=== PATIENT | female | born 1980 | race Caucasian/White ===

== ENCOUNTER 2019-01-14 16:44 | Inpatient (IN) | payer BC ==
[~2019-01-14] VITALS: Ht 160 cm; Wt 80.5 kg
[2019-01-14] MEDS ORDERED: NORTRIPTYLINE H50 MG PO (16:53)
[2019-01-14] MEDS ORDERED: TRAZODONE HCL150 MG PO (16:53)
[2019-01-14] MEDS ORDERED: ATIVAN0.5 MG PO (16:54)
[2019-01-14] MEDS ORDERED: BUSPAR 15 MG TA15 MG PO (16:54)
--- NOTE | 2019-01-14 17:20 | NUR ---
URINE SPEC OBTAINED, LABELED AT BS AND SENT TO LAB
[2019-01-14 17:23] LABS: BASOPHILS 0.2 % (0-2); EOSINOPHILS 0.1 % (0-7); HEMATOCRIT 50.3 % (36.0-48.0); HEMOGLOBIN 17.4 g/dL (12-16); IMMATURE GRANULOCYTES 0.3 % (0-5); LYMPHOCYTES 11.8 % (15-50); MCH 34.6 pg (26.0-34.0); MCHC 34.6 g/dL (31.0-37.0); MEAN PLATELET VOLUME 10.3 fL (7.4-10.4); MONOCYTES 9.2 % (2-11); NEUTROPHILS 78.4 % (40-80); PLATELET COUNT 279 10x3/uL (130-400); RBC 5.03 10x6/uL (4.00-5.40); RDW 13.8 % (11.5-14.5); WBC 12.6 10x3/uL (4.8-10.8)
[2019-01-14 17:31] VITALS: BP 138/106
[2019-01-14 17:34] LABS: APPEARANCE CLEAR (CLEAR); BILIRUBIN NEGATIVE (NEGATIVE); COLOR YELLOW (YELLOW); EPITHELIAL CELLS 0-5 /hpf (0-5); GLUCOSE 50 mg/dL (NEGATIVE); KETONE NEGATIVE (NEGATIVE); NITRITE NEGATIVE (NEGATIVE); PROTEIN 2+ mg/dL (NEGATIVE); SPECIFIC GRAVITY 1.015 (1.005-1.020); UROBILINOGEN NORMAL (NORMAL)
[2019-01-14 17:35] LABS: AMORPHOUS SEDIMENT >1+ /lpf (NONE SEEN); BACTERIA MANY /hpf (NEGATIVE); MUCUS >1+ /lpf (NONE SEEN)
[2019-01-14 17:41] LABS: ANION GAP 20.6 mmol/L (8-16); CALCIUM 10.2 mg/dL (8.5-10.1); CARBON DIOXIDE 22.5 mmol/L (21.0-32.0); CREATININE - SERUM 1.7 mg/dL (0.6-1.3); POTASSIUM - SERUM 3.1 mmol/L (3.5-5.1)
[2019-01-14 17:46] LABS: ALBUMIN 4.9 g/dL (3.4-5.0); BILIRUBIN - TOTAL 1.44 mg/dL (0.2-1.3); PROTEIN - SERUM 10.5 g/dL (6.4-8.2)
--- NOTE | 2019-01-14 18:20 | NUR ---
NOTIFIED BY LAB OF LACTIC ACID OF 2.8 CRITICAL LAB SHEET COMPLETED AND PLACED ON PT'S CHART.
--- NOTE | 2019-01-14 18:20 | NUR ---
RTND FROM CT. REPORTS NAUSEA RESOLVED.
[2019-01-14 18:30] VITALS: BP 152/92
--- NOTE | 2019-01-14 19:06 | NUR ---
ABXS HELD AND LAB NOTIFIED OF NEED FOR 'S. GAGE JACKSON AWARE
--- NOTE | 2019-01-14 19:06 | NUR ---
BS REPORT TO JUAN CARLOS JACKSON
--- NOTE | 2019-01-14 19:32 | NUR ---
BLOOD CULTURES DRAWN X 2, ROCEPHIN ANTIBIOTIC STARTED NOW.
[2019-01-14 20:03] LABS: UDS - AMPHET NEGATIVE QUAL (NEGATIVE); UDS - BARB NEGATIVE QUAL (NEGATIVE); UDS - BENZO NEGATIVE QUAL (NEGATIVE); UDS - COCAINE NEGATIVE QUAL (NEGATIVE); UDS - OPIATE NEGATIVE QUAL (NEGATIVE); UDS - PCP NEGATIVE QUAL (NEGATIVE); UDS - THC POSITIVE QUAL (NEGATIVE)
[2019-01-14 20:43] VITALS: BP 150/90; BMI 30.5
[2019-01-15] VITALS: BP 149/75
[2019-01-15 03:35] VITALS: BP 139/96
[2019-01-15 06:58] LABS: BASOPHILS 0.1 % (0-2); EOSINOPHILS 0.7 % (0-7); IMMATURE GRANULOCYTES 0.3 % (0-5); LYMPHOCYTES 22.4 % (15-50); MCH 33.4 pg (26.0-34.0); MCHC 33.3 g/dL (31.0-37.0); MCV 100.3 fL (80.0-100.0); MEAN PLATELET VOLUME 10.5 fL (7.4-10.4); MONOCYTES 5.7 % (2-11); NEUTROPHILS 70.8 % (40-80); PLATELET COUNT 245 10x3/uL (130-400); RDW 13.9 % (11.5-14.5)
[2019-01-15 07:00] LABS: HEMATOCRIT 37.8 % (36.0-48.0); HEMOGLOBIN 12.6 g/dL (12-16); RBC 3.77 10x6/uL (4.00-5.40); WBC 7.7 10x3/uL (4.8-10.8)
--- NOTE | 2019-01-15 07:17 | NUR ---
PT RESTING. RR EVEN AND UNLABORED. DENIES NEEDS OR PAIN AT THIS TIME. BED IN LOWEST POSITION. CALL LIGHT WITHIN REACH. WILL CONTINUE TO MONITOR.
[2019-01-15 07:57] LABS: ALKALINE PHOSPHATASE 49 U/L (46-116); AMYLASE - SERUM 214 U/L (25-115); BILIRUBIN - TOTAL 0.92 mg/dL (0.2-1.3); CARBON DIOXIDE 24.6 mmol/L (21.0-32.0); CHLORIDE - SERUM 102 mmol/L (98-107); MAGNESIUM - SERUM 2.9 mg/dL (1.8-2.4); SODIUM 139 mmol/L (136-145)
[2019-01-15 08:02] LABS: ALBUMIN 3.3 g/dL (3.4-5.0); ALT (SGPT) 30 U/L (10-68); CALC OSMOLALITY 278 mosm/kg (275-300); CALCIUM 7.5 mg/dL (8.5-10.1); CREATININE - SERUM 0.8 mg/dL (0.6-1.3); GLUCOSE 95 mg/dL (74-106); LIPASE 2090 U/L (73-393); PROTEIN - SERUM 7.1 g/dL (6.4-8.2); UREA NITROGEN 16 mg/dL (7-18); eGFR NON AFRICAN AMERICAN 86 mL/min (90-120)
[2019-01-15 08:06] LABS: PHOSPHOROUS 1.3 mg/dL (2.5-4.9)
[2019-01-15 08:07] LABS: POTASSIUM - SERUM 2.8 mmol/L (3.5-5.1)
--- NOTE | 2019-01-15 12:51 | NUR ---
PT RESTING. C/O HEARTBURN/INDEGESTION. MARK ARREGUIN NOTIFIED. ORDERS IN FOR [place]. WILL GIVE PER ORDER. PT DENIES FURTHER NEEDS AT THIS TIME. RR EVEN AND UNLABORED. CL WITHIN REACH. WILL CONTINUE TO MONITOR
[2019-01-15 17:25] VITALS: BP 157/103
--- NOTE | 2019-01-15 17:39 | NUR ---
I have reviewed this patient and I concur with the Shift Assessment completed by the Licensed Practical Nurse today this shift.
[2019-01-15 19:06] VITALS: BP 141/99
--- NOTE | 2019-01-15 19:20 | NUR ---
EVENING ROUNDS COMPLETED. VSS, AAOX4, NO S/S OF DISTRESS. BANANA BAG INFUSING. PT DENIES ANY NEED FOR PAIN AT THIS TIME. WILL CTM. CL WITHIN REACH.
[2019-01-15 22:51] LABS: PHOSPHOROUS 1.2 mg/dL (2.5-4.9); POTASSIUM - SERUM 2.8 mmol/L (3.5-5.1)
[2019-01-16 03:51] VITALS: BP 150/104
--- NOTE | 2019-01-16 07:20 | NUR ---
RECIEVE REPORT. ALERT AND ORIENTED X4. SITTING UP IN BED. IV INFUSING ORDERED. SINUS RYTHM ON TELEMETRY. FOLLOW ELECTROLYTE PROTOCOL ORDERED. DENIES ANY NEEDS AT THIS TIME.CONTINUE PLAN OF CARE AND SAFETY PRECAUTIONS.
[2019-01-16 07:38] LABS: CALCIUM 7.5 mg/dL (8.5-10.1); CARBON DIOXIDE 23.5 mmol/L (21.0-32.0); CHLORIDE - SERUM 105 mmol/L (98-107); CREATININE - SERUM 0.6 mg/dL (0.6-1.3); GLUCOSE 105 mg/dL (74-106); MAGNESIUM - SERUM 2.7 mg/dL (1.8-2.4); SODIUM 140 mmol/L (136-145); eGFR NON AFRICAN AMERICAN > 90 mL/min (90-120)
[2019-01-16 07:40] LABS: BASOPHILS 0.5 % (0-2); EOSINOPHILS 1.1 % (0-7); HEMATOCRIT 36.8 % (36.0-48.0); IMMATURE GRANULOCYTES 0.2 % (0-5); LYMPHOCYTES 31.5 % (15-50); MCH 33.1 pg (26.0-34.0); MCHC 32.6 g/dL (31.0-37.0); MCV 101.7 fL (80.0-100.0); MEAN PLATELET VOLUME 9.9 fL (7.4-10.4); MONOCYTES 6.4 % (2-11); NEUTROPHILS 60.3 % (40-80); PLATELET COUNT 252 10x3/uL (130-400); RBC 3.62 10x6/uL (4.00-5.40); RDW 13.9 % (11.5-14.5); WBC 6.4 10x3/uL (4.8-10.8)
[2019-01-16 07:41] LABS: CALC OSMOLALITY 276 mosm/kg (275-300); PHOSPHOROUS 2.2 mg/dL (2.5-4.9); POTASSIUM - SERUM 3.3 mmol/L (3.5-5.1); UREA NITROGEN 6 mg/dL (7-18)
[2019-01-16 08:33] VITALS: BP 137/96
[2019-01-16 11:24] VITALS: BP 149/106
[2019-01-16 12:07] VITALS: Ht 160 cm; Wt 80.5 kg
[2019-01-16 14:16] LABS: PHOSPHOROUS 1.7 mg/dL (2.5-4.9); POTASSIUM - SERUM 3.5 mmol/L (3.5-5.1)
[2019-01-16 16:40] VITALS: BP 148/109
--- NOTE | 2019-01-16 17:48 | NUR ---
ALERT AND ORIENTED X4. SITTING UP IN BED. SINUS TACH 103 ON TELEMETRY. IV FLUIDS INFUSING ORDERED. BANANA BAG HELD DUE TO Mg ELEVATED TO 2.7. DENIES PAIN OR SOB. SHOWER AND LINEN CHANGE COMPLETE. DENIES ANY NEEDS AT THIS TIME. CONTINUE PLAN OF CARE AND SAFETY PRECAUTIONS.
[2019-01-16 19:31] VITALS: BP 151/99
--- NOTE | 2019-01-16 20:15 | NUR ---
EVENING ROUNDS COMPLETED. VSS EXCEPT FOR HR. PT SINUS TACH ON TELEMETRY. BANANA BAG NOT INFUSING AT THIS TIME. OUTGOING HELD DUE TO INCREASE IN BLOOD MAGNESIUM LEVELS. WILL REASSESS AM LABS AND CONTINUE IF NECESSARY. PT DENIES ANY PAIN AT THIS TIME. PT STATES SHE IS HUNGRY AND NEEDED SOME FOOD. EDUCTATE PT ON THE THE NEED TO REMAIN ON BOWEL REST DUE TO ELEVATE LIPASE. ICE CHIPS PROVIDED FOR DRY MOUTH. FAMILY AT BEDSIDE. PT DENIES ANY FURTHER NEEDS AT THIS TIME. WILL CPOC. CL WITHIN REACH, BED IN LOW, SR UP X2.
[2019-01-16 23:58] VITALS: BP 146/105
[2019-01-17 04:13] VITALS: BP 145/102
[2019-01-17 06:25] LABS: BASOPHILS 0.3 % (0-2); EOSINOPHILS 1.3 % (0-7); HEMOGLOBIN 12.9 g/dL (12-16); IMMATURE GRANULOCYTES 0.4 % (0-5); LYMPHOCYTES 23.5 % (15-50); MCH 33.6 pg (26.0-34.0); MCHC 33.1 g/dL (31.0-37.0); MCV 101.6 fL (80.0-100.0); MEAN PLATELET VOLUME 10.1 fL (7.4-10.4); MONOCYTES 7.4 % (2-11); NEUTROPHILS 67.1 % (40-80); PLATELET COUNT 266 10x3/uL (130-400); RBC 3.84 10x6/uL (4.00-5.40); RDW 13.7 % (11.5-14.5); WBC 7.9 10x3/uL (4.8-10.8)
[2019-01-17 06:34] LABS: CALC OSMOLALITY 268 mosm/kg (275-300); CALCIUM 7.8 mg/dL (8.5-10.1); CARBON DIOXIDE 21.7 mmol/L (21.0-32.0); CHLORIDE - SERUM 100 mmol/L (98-107); CREATININE - SERUM 0.5 mg/dL (0.6-1.3); GLUCOSE 89 mg/dL (74-106); MAGNESIUM - SERUM 2.2 mg/dL (1.8-2.4); POTASSIUM - SERUM 3.4 mmol/L (3.5-5.1); SODIUM 136 mmol/L (136-145); UREA NITROGEN 6 mg/dL (7-18); eGFR NON AFRICAN AMERICAN > 90 mL/min (90-120)
--- NOTE | 2019-01-17 09:01 | NUR ---
PT IS UPSET ABOUT HER LABS (SPECIFICALLY HER LIPASE) NOT IMPROVING EVEN THOUGH SHE'S BEEN HERE SINCE SATURDAY. PT IS WANTING TO BE TRANSFERED TO [facility] TO RECIEVE "BETTER CARE". ATTEMTPED TO CALL LESLIE ARREGUIN TO INFORM HER OF THE CONCERNS. CL IN REACH, SRX2.
[2019-01-17 09:13] VITALS: BP 161/114
--- NOTE | 2019-01-17 11:15 | NUR ---
PT HAS MOTHER AT [facility]. EXPLAINED THAT HER LIPASE WAS STILL ELEVATING AND THAT SHE WOULD NEED TO BE STRICTLY NPO. pt verbalizes complience. EXPLAINED THAT A TRANSFER TO [facility] WOULD BE SEEN LATTERAL CARE AND WOULD LIKELY NOT BE A POSSIBLITY BUT WOULD LET FURTHER EXPLAIN WHEN THEY ROUND. L IN REACH, SRX2.
[2019-01-17 11:30] VITALS: BP 152/104
--- NOTE | 2019-01-17 12:08 | NUR ---
I have reviewed this patient and I concur with the Shift Assessment completed by the Licensed Practical Nurse today this shift.
--- NOTE | 2019-01-17 13:05 | NUR ---
PT GONG TO MRI VIA WHEELCHAIR.
--- NOTE | 2019-01-17 13:22 | NUR ---
CHANGED LINNINS AND CLEANED ROOM
--- NOTE | 2019-01-17 14:40 | NUR ---
PT SHOWERED AND LINNENS CHANGED. NO COMPLAINTS OR CONCERNS MOTHER AT BEDSIDE. CL IN REACH, SRX2.
[2019-01-17 16:55] VITALS: BP 139/97
--- NOTE | 2019-01-17 17:35 | NUR ---
PT AWAKE AND ORIENTED, MOTHER AT BEDSIDE. HOPEFULL TO GO HOME TONIGHT, BUT LIPASE HAS AGAIN INCREASED. PAGED LESLIE ARREGUIN TO INFORM HER OF THE LAB WORK. NO COMPLAINTS OR CONCERNS AT THIS TIME, ALL QUESTIONS ANSWERED TO THE BEST OF MY ABILITY. CL IN REACH, SRX2.
[2019-01-17 19:32] VITALS: BP 135/95
--- NOTE | 2019-01-17 19:37 | NUR ---
PT SITTING UP IN BED. CL IN REACH. BED IN LOW SIDE RAILS X2. A/O X4. LUNGS CLEAR. BOWEL ACTIVE X4. BED IN LOW SIDE RAILS X2. PT IS NPO. ON TELEMETRY. DENIES NEEDS AT THIS TIME. WILL CONTINUE TO MONITOR.
[2019-01-17 23:57] VITALS: BP 136/91
--- NOTE | 2019-01-18 02:20 | NUR ---
I have reviewed this patient and I concur with the Shift Assessment completed by the Licensed Practical Nurse today this shift.
[2019-01-18 05:04] VITALS: BP 146/93
[2019-01-18 05:46] LABS: BASOPHILS 0.1 % (0-2); EOSINOPHILS 1.1 % (0-7); HEMATOCRIT 38.2 % (36.0-48.0); HEMOGLOBIN 12.6 g/dL (12-16); IMMATURE GRANULOCYTES 0.4 % (0-5); MCH 33.4 pg (26.0-34.0); MCV 101.3 fL (80.0-100.0); MEAN PLATELET VOLUME 9.8 fL (7.4-10.4); MONOCYTES 10.8 % (2-11); NEUTROPHILS 67.6 % (40-80); PLATELET COUNT 290 10x3/uL (130-400); RBC 3.77 10x6/uL (4.00-5.40); WBC 7.4 10x3/uL (4.8-10.8)
[2019-01-18 05:58] LABS: CALC OSMOLALITY 270 mosm/kg (275-300); CALCIUM 7.7 mg/dL (8.5-10.1); CARBON DIOXIDE 19.2 mmol/L (21.0-32.0); CHLORIDE - SERUM 103 mmol/L (98-107); CREATININE - SERUM 0.6 mg/dL (0.6-1.3); GLUCOSE 83 mg/dL (74-106); MAGNESIUM - SERUM 2.2 mg/dL (1.8-2.4); POTASSIUM - SERUM 3.3 mmol/L (3.5-5.1); SODIUM 137 mmol/L (136-145); UREA NITROGEN 7 mg/dL (7-18); eGFR NON AFRICAN AMERICAN > 90 mL/min (90-120)
[2019-01-18 06:03] LABS: PHOSPHOROUS 2.2 mg/dL (2.5-4.9)
[2019-01-18 07:36] VITALS: BP 181/117
--- NOTE | 2019-01-18 07:42 | NUR ---
PT AWAKE AND ORIENTED, LIPASE DOWN (PAGED LESLIE ARREGUIN). PT IS ASKING TO EAT THIS MORNING, WILL DISCUS WITH WOOD TURNER. OTHERWISE STATES SHE FEELS PERFECTLY FINE AND IS "DESPERATE TO DO WHATEVER IT TAKES" TO GET OUT OF HERE TODAY. CL IN REACH, SRX2
[2019-01-18 11:00] VITALS: BP 153/109
--- NOTE | 2019-01-18 11:02 | NUR ---
I have reviewed this patient and I concur with the Shift Assessment completed by the Licensed Practical Nurse today this shift.
[2019-01-18 15:42] VITALS: BP 139/103
[2019-01-18 19:30] VITALS: BP 147/94
--- NOTE | 2019-01-18 19:30 | NUR ---
PATIENT RESTING IN BED WITH NO S/S OF DISTRESS. VSS. BROUGHT PATIENT WATER PER HER REQUEST. PATIENT DENIES OTHER NEEDS AT THIS TIME. BED IN LOWEST POSITION AND CALL LIGHT WITHIN REACH. ENCOURAGED THE PATIENT TO CALL IF SHE HAS NEEDS. WILL CONTINUE TO MONITOR.
--- NOTE | 2019-01-18 20:50 | NUR ---
CHANGED PATIENT'S IV TUBING
[2019-01-18 23:25] VITALS: BP 155/102
[2019-01-19 03:56] VITALS: BP 150/103
--- NOTE | 2019-01-19 07:04 | NUR ---
PT AWAKE AND ORIENTED, HOPEFUL HER LABS WILL BE BETTER TODAY. NO COMPLAINTS OTHER THAN HER STRONG DESIRE TO GO HOME. ALL QUESTIONS ANSWERED TO T HE BEST OF MY ABILITY. NO FAMILY PRESENT AT BEDSIDE. CL IN REACH, SRX2.
[2019-01-19 07:17] LABS: CARBON DIOXIDE 19.3 mmol/L (21.0-32.0); CHLORIDE - SERUM 105 mmol/L (98-107); GLUCOSE 80 mg/dL (74-106); SODIUM 138 mmol/L (136-145)
[2019-01-19 07:20] LABS: CALC OSMOLALITY 271 mosm/kg (275-300); CREATININE - SERUM 0.4 mg/dL (0.6-1.3); LIPASE 2222 U/L (73-393); UREA NITROGEN 3 mg/dL (7-18); eGFR NON AFRICAN AMERICAN > 90 mL/min (90-120)
[2019-01-19 07:22] LABS: BASOPHILS 0.4 % (0-2); EOSINOPHILS 1.5 % (0-7); HEMATOCRIT 37.8 % (36.0-48.0); HEMOGLOBIN 12.3 g/dL (12-16); IMMATURE GRANULOCYTES 0.7 % (0-5); LYMPHOCYTES 20.7 % (15-50); MCH 33.4 pg (26.0-34.0); MCHC 32.5 g/dL (31.0-37.0); MCV 102.7 fL (80.0-100.0); MEAN PLATELET VOLUME 9.8 fL (7.4-10.4); MONOCYTES 16.2 % (2-11); NEUTROPHILS 60.5 % (40-80); PLATELET COUNT 339 10x3/uL (130-400); RBC 3.68 10x6/uL (4.00-5.40); RDW 14.1 % (11.5-14.5)
[2019-01-19 07:25] LABS: WBC 5.5 10x3/uL (4.8-10.8)
[2019-01-19 09:48] VITALS: BP 175/102
[2019-01-19] MEDS ORDERED: COREG12.5 MG PO (10:21)
--- NOTE | 2019-01-19 11:32 | NUR ---
I/V OUT TIP INTACT. PT WAITING ON FATHER THEN REQUESTS TO AMBULATE OUT, DENIES BRIANNE.
--- NOTE | 2019-01-19 12:05 | NUR ---
PT ESCORTED OUT VIA AMBULATION, STIL DENIES WHEELCHIAR NEED.
--- NOTE | 2019-01-19 16:54 | MORECARE ---
CASE MANAGEMENT DISCHARGE SUMMARY PATIENT: BECKIE CARRIZALES UNIT: [id number] ADM DATE: 01/14/19 AGE: 38 : 84 SEX: F ROOM/BED: D.1209 AUTHOR: DHARA,DOC PHYSICIAN: REFERRING PHYSICIAN: KESHAWN EVANS MD DATE OF SERVICE: 01/19/19 Discharge Plan Patient Name: BECKIE CARRIZALES Facility: [facility]:[place] : 1980 Planned Disposition: Home Anticipated Discharge Date: 01/19/19 Discharge Date: 01/19/2019 Expected LOS: 5 Initial Reviewer: [id number] Initial Review Date: 01/19/2019 Generated: 01/19/19 5:54 pm Comments DCP- Discharge Planning Updated by [email or web address]: Solo Sanchez on 01/19/19 3:[address] Patient Name: BECKIE CARRIZALES Admission Status: ER Accout number: [id number] Admission Date: 01-14-2019 : 1980 Admission Diagnosis: Attending: GUANAKITO Current LOS: 5 Anticipated DC Date: 01-19-2019 Planned Disposition: Home Primary Insurance: [employer] OUT OF STATE Discharge Planning Comments: CM MET WITH PT IN ROOM TO DISCUSS DISCHARGE PLANNING AND NEEDS. BECKIE CARRIZALES provided verbal consent to discuss current and ongoing needs with/in the presence of: HER FATHER. PT REPORTS LIVING AT HOME INDEPENDENTLY WITH HER SPOUSE. PT HAS NO MEDICAL EQUIPMENT AND NO OUTSIDE SERVICES ASSISTING IN THE HOME. CM DISCUSSED AVAILABILITY OF HOME HEALTH, REHAB SERVICES AND MEDICAL EQUIPMENT. PT DENIES DISCHARGE NEEDS, REPORTS HER DAD WILL PICK HER UP FOR DISCHARGE HOME. Caustic Mixer: Solo Sanchez DCPIA - Discharge Planning Initial Assessment Updated by [id number]: Solo Sanchez on 01/19/19 4:53 pm * Is the patient Alert and Oriented? Yes * How many steps to enter\exit or inside your home? 15 * PCP DR. SWATI CRUZ, [place] IN [place] * Pharmacy [facility] * Preadmission Environment Home with Family * ADLs Independent * Equipment None * Other Equipment NO MEDICAL EQUIPMENT PROVIDER PREFERENCE * List name and contact numbers for known caregivers / representatives who currently or will assist patient after discharge: MICHAEL CARRIZALES, SPOUSE, * Verbal permission to speak to the caregivers and representatives has been obtained from the patient. Yes * Community resources currently utilized None * Please name any agencies selected above. NONE * Additional services required to return to the preadmission environment? No * Can the patient safely return to the preadmission environment? Yes * Has this patient been hospitalized within the prior 30 days at any hospital? No Patient Name: BECKIE CARRIZALES Page [phone] at [id number] All edits/amendments must be made on the electronic document DICTATION DATE: 01/19/191653 BOOK JACKET COVER MACHINE OPERATOR: [email or web address] 01/19/191653 RPT#: [id number] DC DATE:01/19/19 STATUS: DIS IN [facility] [address] [place] [address] END OF REPORT
== END 2019-01-19 12:06 | disposition home or self-care (01) | DRG 439 ==
LOC: D.ER 16:44 → D.M3 18:55
PROVIDERS: Family Medicine; ADMIT Family Medicine; ATTEND Family Medicine
DX: K85.20 Alcohol induced acute pancreatitis without necrosis or infection (principal); N39.0 Urinary tract infection, site not specified; E87.1 Hypo-osmolality and hyponatremia; N17.9 Acute kidney failure, unspecified; E87.6 Hypokalemia; D75.89 Other specified diseases of blood and blood-forming organs; F10.10 Alcohol abuse, uncomplicated; F41.9 Anxiety disorder, unspecified; R00.0 Tachycardia, unspecified